=== PATIENT | female | born 1955 | race Caucasian/White ===

== ENCOUNTER 2017-04-18 08:05 | Day surgery (SDC) | payer OTHER ==
[~2017-04-18 08:05] MED LIST: CEFAZOLIN 2 GM/50 ML (PMX) 50 ML IVPB; TRANEXAMIC ACID 1,000 MG in DEXTROSE 5% 100 ML IVPB
[2017-04-18] MEDS: traMADol 50 MG TAB PO (10:34)
[2017-04-18] MEDS: DEXAMETHASONE 1 MG TAB PO (10:34)
[2017-04-18] MEDS ORDERED: MIDAZOLAM 1 MG/ML 2 ML INJ (11:29)
[2017-04-18] MEDS ORDERED: ROPIVACAINE 0.5 % 30 ML VIAL (11:30)
[2017-04-18] MEDS ORDERED: hydrALAzine 20 MG INJ (13:00)
[2017-04-18] MEDS ORDERED: GLYCOPYRROLATE 0.4 MG INJ (13:46)
[2017-04-18] MEDS ORDERED: LIDOCAINE 2% (SDV) 5 ML INJ (13:46)
[2017-04-18] MEDS ORDERED: ONDANSETRON 4 MG INJ (13:46)
[2017-04-18] MEDS ORDERED: NEOSTIGMINE 3 MG/3 ML SYRINGE (13:46)
[2017-04-18] MEDS ORDERED: ETOMIDATE 20 MG INJ (13:46)
[2017-04-18] MEDS ORDERED: CEFAZOLIN 1 GM INJ (13:46)
[2017-04-18] MEDS ORDERED: ROCURONIUM 50 MG INJ (13:46)
[2017-04-18] MEDS ORDERED: FENTAnyl 50 MCG/ML VIAL IV (14:00)
[2017-04-18] MEDS ORDERED: MEPERIDINE 25 MG INJ IV (14:00)
[2017-04-18] MEDS ORDERED: ONDANSETRON 4 MG INJ IV (14:00)
[2017-04-18] MEDS ORDERED: LABETALOL HCL 20MG INJ IV (14:00)
[2017-04-18] MEDS ORDERED: hydrALAzine 20 MG INJ IV (14:00)
[2017-04-18] MEDS ORDERED: DIPHENHYDRAMINE 50 MG INJ IV (14:00)
[2017-04-18] MEDS ORDERED: HYDROmorphONE (0.2 MG/ML) 10ML SYG IV ×2 (14:00)
[2017-04-18] MEDS ORDERED: METOCLOPRAMIDE 10 MG INJ IV (14:00)
== END 2017-04-18 16:43 | disposition home or self-care (01) ==
LOC: SDS 08:05
DX: M75.102 Unspecified rotator cuff tear or rupture of left shoulder, not specified as traumatic (principal); M19.012 Primary osteoarthritis, left shoulder; S46.212D Strain of muscle, fascia and tendon of other parts of biceps, left arm, subsequent encounter; X58.XXXD Exposure to other specified factors, subsequent encounter; E66.9 Obesity, unspecified; Z68.30 Body mass index [BMI] 30.0-30.9, adult
CPT/HCPCS: 29823; 86999